=== PATIENT | male | born 1995 | race Caucasian/White ===

== ENCOUNTER 2017-06-01 03:38 | Emergency (ER) | payer SELFPAY ==
[~2017-06-01] VITALS: Ht 175.3 cm; Wt 65.0 kg
[2017-06-01] MEDS ORDERED: SODIUM CHLORIDE 0.9% 1,000 ML IV ONE (04:31)
[2017-06-01] MEDS ORDERED: THIAMINE HCL 100 MG/1 ML 2ML VIAL IV ONE (04:45)
[2017-06-01] MEDS ORDERED: ONDANSETRON HCL 4MG/2ML VIAL IV ONE (04:45)
[2017-06-01 05:46] LABS: BASOPHILS % 0.1 % (0.0-2.0); EOSINOPHILS % 0.1 % (0.0-5.0); HEMATOCRIT. 46.9 % (42.0-52.0); HEMOGLOBIN. 16.5 g/dL (14.0-18.0); LYMPHOCYTES % 10.4 % (20.0-50.0); MEAN CORPUSCULAR HEMOGLOBIN 29.8 pg (28.0-32.0); MEAN CORPUSCULAR VOLUME 84.8 fL (80.0-94.0); MEAN PLATELET VOLUME 7.2 fl (7.4-10.4); MONOCYTES % 3.1 % (2.0-8.0); NEUTROPHILS % 86.3 % (40.0-76.0); PLATELET 262 x1000/uL (130-400); RED BLOOD CELL COUNT 5.53 mill/uL (4.7-6.1); RED CELL DISTRIBUTION WIDTH 12.4 % (11.6-14.6)
[2017-06-01 05:49] LABS: INR 1.1; PROTHROMBIN TIME 11.2 sec (9.4-11.6)
[2017-06-01 05:54] LABS: CHLORIDE 107 mEq/L (98-107); ETHANOL BLOOD 170 mg/dL
[2017-06-01 07:35] VITALS: BP 129/70
== END 2017-06-01 08:00 | disposition home or self-care (01) ==
LOC: ER 03:38
DX: F10.129 Alcohol abuse with intoxication, unspecified (principal); G92 Toxic encephalopathy; Y90.6 Blood alcohol level of 120-199 mg/100 ml
CPT/HCPCS: 36415; 70450; 72125; 80053; 80307; 80329; 85025; 85610; 96361; 96374; 96375; 99285; G0482; J2405; J3411; J7030; Z7610